=== PATIENT | male | born 1990 | race African-American/Black ===

== ENCOUNTER 2023-09-01 18:53 | Inpatient (IN) | payer SELFPAY ==
[2023-09-01] MEDS ORDERED: Famotidine 20 MG TAB ONE (20:53)
[2023-09-01 20:59] LABS: SARS-CoV-2 E Target Negative; SARS-CoV-2 N2 Target Negative; SARS-CoV-2 NAA Rapid Test Not Detected (NotDetected); SARS-CoV-2 RdRP gene Negative
[2023-09-01 21:16] LABS: #Basophils 0.06 10x3/uL (0.0-0.2); %Basophils 0.6 % (0.0-1.0); %Eosinophils 0.6 % (0.0-10.0); %Lymphocytes 15.7 % (21.0-51.0); %Monocytes 6.4 % (0.0-10.0); %Neutrophils 76.1 % (42.0-75.0); Hematocrit 42.7 % (42.0-52.0); Hemoglobin 13.4 g/dL (14.0-18.0); Mean Corpuscular HGB CONC 31.4 g/dL (32.0-36.0); Mean Corpuscular Hemoglobin 26.7 pg (27.0-31.0); Mean Corpuscular Volume 85.2 fL (78.0-98.0); Mean Platelet Volume 10.6 fL (7.4-10.4); Platelet Count 221 10x3/uL (130-400); RBC Distribution Width 14.3 % (11.5-14.5); Red Blood Cell (RBC) Count 5.01 mill/uL (4.70-6.10)
[2023-09-01 21:31] LABS: ALT (SGPT) 14 U/L (8-55); AST (SGOT) 12 U/L (5-34); Albumin 3.7 g/dL (3.5-5.0); Alkaline Phosphatase 76 U/L (40-110); Anion Gap 15 mmol/L (10-20); BUN (Urea Nitrogen) 14 mg/dL (8.9-20.6); Bilirubin, Total 0.3 mg/dL (0.2-1.2); Calc. Creatinine Clearance 0 mL/min (70-130); Calcium 9.5 mg/dL (7.8-10.44); Carbon Dioxide 23 mmol/L (22-29); Chloride 104 mmol/L (98-107); Estimated GFR 93; Globulin 3.2 g/dL (2.4-3.5); Glucose 139 mg/dL (70-105); Lipase 12 U/L (8-78); Potassium 4.4 mmol/L (3.5-5.1); Protein, Total 6.9 g/dL (6.0-8.3); Sodium 138 mmol/L (136-145)
[2023-09-01 21:36] LABS: Troponin I 0.059 ng/mL (< 0.028)
[2023-09-01] MEDS ORDERED: Aspirin Chewable 81 MG TAB ONE (21:47)
[2023-09-01] MEDS ORDERED: Nitroglycerin 0.4 MG TAB 1 EACH ONE ×2 (21:48→21:57)
[2023-09-01 23:42] VITALS: BMI 47.0
[2023-09-01] MEDS ORDERED: Ondansetron PF 4 MG/2 ML Vial IVP PRN (23:55)
[2023-09-01] MEDS ORDERED: Acetaminophen 650 MG Suppository PR PRN (23:55)
[2023-09-01] MEDS ORDERED: Ondansetron ODT 4 MG TAB PO PRN (23:55)
[2023-09-02] MEDS ORDERED: Dextrose 5% in Water 1,000 ML IV PRN (00:01)
[2023-09-02] MEDS ORDERED: Dextrose 50% Abboject 50 ML SYRINGE SLOW IVP PRN (00:01)
[2023-09-02] MEDS ORDERED: Glucagon 1 MG/ML KIT IM PRN (00:01)
[2023-09-02] MEDS ORDERED: Insulin Regular, Human 100 UNIT/ML 10 ML VIAL SC PRN ×2 (00:01)
[2023-09-02 00:41] LABS: Troponin I 1.038 ng/mL (< 0.028)
[2023-09-02] MEDS: Enoxaparin 30 MG (0.3 mL) SYRINGE SC SCH (01:03)
[2023-09-02] MEDS: Enoxaparin 100 MG (1 mL) SYRINGE SC SCH (01:03)
[2023-09-02] MEDS: Lidocaine 2% Viscous 10 mL, Alum & Magn 30 mL SSW SCH (02:09)
[2023-09-02] MEDS: Heparin 10,000 UNITS/ 10 ML VIAL SLOW IVP SCH (02:19)
[2023-09-02] MEDS: Heparin 25,000 units/D5W 500 ML IVPB SCH (02:21)
[2023-09-02 03:07] LABS: Hematocrit 41.5 % (42.0-52.0); Hemoglobin 13.2 g/dL (14.0-18.0); Platelet Count 234 10x3/uL (130-400)
[2023-09-02 04:39] LABS: #Basophils 0.05 10x3/uL (0.0-0.2); %Basophils 0.4 % (0.0-1.0); %Eosinophils 0.8 % (0.0-10.0); %Neutrophils 69.4 % (42.0-75.0); Hematocrit 40.8 % (42.0-52.0); Hemoglobin 12.9 g/dL (14.0-18.0); Mean Corpuscular HGB CONC 31.6 g/dL (32.0-36.0); Mean Corpuscular Hemoglobin 26.2 pg (27.0-31.0); Mean Corpuscular Volume 82.8 fL (78.0-98.0); Mean Platelet Volume 11.3 fL (7.4-10.4); Platelet Count 237 10x3/uL (130-400); RBC Distribution Width 14.4 % (11.5-14.5); Red Blood Cell (RBC) Count 4.93 mill/uL (4.70-6.10)
[2023-09-02 05:00] LABS: Hemoglobin A1c 10.5 % (4.0-6.0)
[2023-09-02 05:14] LABS: Anion Gap 12 mmol/L (10-20); BUN (Urea Nitrogen) 12 mg/dL (8.9-20.6); Calc. Creatinine Clearance 209 mL/min (70-130); Calcium 8.9 mg/dL (7.8-10.44); Carbon Dioxide 23 mmol/L (22-29); Chloride 103 mmol/L (98-107); Estimated GFR 110; Glucose 140 mg/dL (70-105); Potassium 4.5 mmol/L (3.5-5.1); Sodium 133 mmol/L (136-145)
[2023-09-02] MEDS ORDERED: Enoxaparin 100 MG (1 mL) SYRINGE SC SCH ×2 (09:00)
[2023-09-02] MEDS ORDERED: Enoxaparin 30 MG (0.3 mL) SYRINGE SC SCH (09:00)
[2023-09-02] MEDS: Insulin Lispro 100 UNIT/ML 10 ML VIAL SC SCH (09:44)
[2023-09-02] MEDS: Famotidine 20 MG TAB PO SCH (09:45)
[2023-09-02] MEDS: Famotidine/PF 20 mg/2ml Vial SLOW IVP SCH (09:45)
[2023-09-02 10:40] LABS: Cardiac Risk 7.6 (Less than 4.5)
[2023-09-02] MEDS ORDERED: Communication Order-Pharmacy FS SCH (11:00)
[2023-09-02] MEDS: Aspirin 81 mg Enteric Coated Tablet PO SCH (13:41)
[2023-09-02] MEDS: Nitroglycerin 2% Ointment 1 INCH/1 GM Packet TOP SCH (14:12)
[2023-09-02] MEDS: Insulin Glargine 30 UNITS/0.3 ML VIAL SC SCH (21:09)
[2023-09-02] MEDS: Acetaminophen 325 MG TAB PO PRN (21:12)
[2023-09-02] MEDS: Rosuvastatin 20 MG TAB PO SCH (21:16)
[2023-09-02 22:29] LABS: Amphetamine Not Detected (NotDetected); Barbiturates Screen Not Detected (NotDetected); Benzodiazepine Screen Not Detected (NotDetected); Cocaine Metabolite Screen Not Detected (NotDetected); Methadone Not Detected (NotDetected); Methamphetamine Not Detected (NotDetected); Opiate Screen Not Detected (NotDetected); Oxycodone Screen Not Detected (NotDetected); Phencyclidine (PCP) Not Detected (NotDetected); THC/Cannabinoid Screen Detected (NotDetected); Tricyclic Screen Not Detected (NotDetected)
[2023-09-03] MEDS: Sodium Chloride 0.9% 1,000 ML IV SCH (06:25)
[2023-09-03] MEDS: Aspirin 81 mg Enteric Coated Tablet PO SCH (06:26)
[2023-09-03] MEDS ORDERED: Nitroglycerin 50 MG/250 ML BOT 250 ML ONE (06:29)
[2023-09-03] MEDS ORDERED: Heparin 10,000 UNITS/ 10 ML VIAL ONE (06:29)
[2023-09-03] MEDS ORDERED: Midazolam HCl 2 mg/2 ml Vial ONE ×2 (07:16→08:09)
[2023-09-03] MEDS ORDERED: fentaNYL 50 mcg/mL 1 mL Vial ONE ×6 (07:16→14:19)
[2023-09-03] MEDS ORDERED: TICAGRELOR 90 MG TABLET ONE ×2 (08:46)
[2023-09-03] MEDS ORDERED: Fentanyl 100 MCG/2 ML VIAL SLOW IVP PRN (09:16)
[2023-09-03] MEDS ORDERED: fentaNYL 50 mcg/mL 1 mL Vial SLOW IVP PRN (09:22)
[2023-09-03] MEDS ORDERED: Iopamidol 370 76% 100 ML VIAL ONE (15:05)
[2023-09-03] MEDS: Lisinopril 5 MG TAB PO SCH (20:18)
[2023-09-03] MEDS: TICAGRELOR 90 MG TABLET PO SCH (20:19)
[2023-09-04 03:40] LABS: #Basophils 0.04 10x3/uL (0.0-0.2); %Basophils 0.5 % (0.0-1.0); %Eosinophils 1.3 % (0.0-10.0); %Lymphocytes 23.8 % (21.0-51.0); %Neutrophils 64.7 % (42.0-75.0); Hematocrit 41.8 % (42.0-52.0); Mean Corpuscular HGB CONC 31.1 g/dL (32.0-36.0); Mean Corpuscular Hemoglobin 26.9 pg (27.0-31.0); Mean Corpuscular Volume 86.4 fL (78.0-98.0); Platelet Count 168 10x3/uL (130-400); RBC Distribution Width 14.2 % (11.5-14.5); Red Blood Cell (RBC) Count 4.84 mill/uL (4.70-6.10)
[2023-09-04 03:58] LABS: ALT (SGPT) 18 U/L (8-55); AST (SGOT) 26 U/L (5-34); Albumin 3.4 g/dL (3.5-5.0); Alkaline Phosphatase 67 U/L (40-110); Anion Gap 15 mmol/L (10-20); BUN (Urea Nitrogen) 10 mg/dL (8.9-20.6); Bilirubin, Total 0.6 mg/dL (0.2-1.2); Calc. Creatinine Clearance 187 mL/min (70-130); Calcium 9.3 mg/dL (7.8-10.44); Carbon Dioxide 21 mmol/L (22-29); Chloride 105 mmol/L (98-107); Estimated GFR 96; Globulin 2.9 g/dL (2.4-3.5); Glucose 94 mg/dL (70-105); Potassium 4.3 mmol/L (3.5-5.1); Protein, Total 6.3 g/dL (6.0-8.3); Sodium 137 mmol/L (136-145)
[2023-09-04] MEDS: Carvedilol 6.25 MG TAB PO SCH (08:58)
[2023-09-04] MEDS: Ezetimibe 10 MG TAB PO SCH (08:58)
[2023-09-04 16:22] VITALS: TEMP 97.4
[2023-09-05] MEDS: metFORMIN 500 MG TAB PO SCH (09:26)
[2023-09-05] MEDS: glipiZIDE XL 2.5 mg ER.TAB PO SCH (09:26)
[2023-09-05 17:54] VITALS: BP 108/56
== END 2023-09-05 17:30 | disposition home or self-care (01) | DRG 322 ==
LOC: ERS 18:53 → 2NO 22:15 → OBSVTOIN 09-02 05:11
PROVIDERS: ADMIT Student in an Organized Health Care Education/Training Program; ATTEND Family Medicine
PROC: 4A023N7 Measurement of Cardiac Sampling and Pressure, Left Heart, Percutaneous Approach (ICD-10-PCS; principal; 2023-09-03)
PROC: 027035Z Dilation of Coronary Artery, One Artery with Two Drug-eluting Intraluminal Devices, Percutaneous Approach (ICD-10-PCS; 2023-09-03)
PROC: B2151ZZ Fluoroscopy of Left Heart using Low Osmolar Contrast (ICD-10-PCS; 2023-09-03)
PROC: B2111ZZ Fluoroscopy of Multiple Coronary Arteries using Low Osmolar Contrast (ICD-10-PCS; 2023-09-03)
DX: I21.4 Non-ST elevation (NSTEMI) myocardial infarction (principal); Z68.42 Body mass index [BMI] 45.0-49.9, adult; I50.22 Chronic systolic (congestive) heart failure; E66.01 Morbid (severe) obesity due to excess calories; E78.2 Mixed hyperlipidemia; I11.0 Hypertensive heart disease with heart failure; F12.10 Cannabis abuse, uncomplicated; E11.65 Type 2 diabetes mellitus with hyperglycemia; Z79.4 Long term (current) use of insulin; Z79.01 Long term (current) use of anticoagulants; Z79.899 Other long term (current) drug therapy; Z79.82 Long term (current) use of aspirin; I25.10 Atherosclerotic heart disease of native coronary artery without angina pectoris
CPT/HCPCS: 36415; 36416; 71045; 80048; 80053; 80061; 80306; 83036; 83690; 83880; 84484; 85025; 85347; 85730; 92928; 92929; 93005; 93010; 93306; 93458; 93798; 96372; 97139; 99152; 99153; C1769; C1874; C1887; C1894; C9600; G0378; J1644; J1650; J1815; J2250; J3010; J7050; Q9967; U0002

== ENCOUNTER 2024-03-15 14:34 | Outpatient (CLI) | payer SELFPAY ==
[2024-03-15 16:05] LABS: #Basophils 0.05 10x3/uL (0.0-0.2); %Basophils 0.6 % (0.0-1.0); %Eosinophils 0.9 % (0.0-10.0); %Lymphocytes 33.3 % (21.0-51.0); %Monocytes 5.6 % (0.0-10.0); %Neutrophils 59.4 % (42.0-75.0); Hematocrit 45.8 % (42.0-52.0); Hemoglobin 14.7 g/dL (14.0-18.0); Mean Corpuscular HGB CONC 32.1 g/dL (32.0-36.0); Mean Corpuscular Hemoglobin 25.6 pg (27.0-31.0); Mean Corpuscular Volume 79.8 fL (78.0-98.0); Mean Platelet Volume 11.6 fL (7.4-10.4); Platelet Count 254 10x3/uL (130-400); RBC Distribution Width 14.3 % (11.5-14.5); Red Blood Cell (RBC) Count 5.74 mill/uL (4.70-6.10)
[2024-03-15 16:37] LABS: ALT (SGPT) 15 U/L (Less than 45); AST (SGOT) 17 U/L (11-34); Alkaline Phosphatase 59 U/L (40-110); Anion Gap 12 mmol/L (10-20); BUN (Urea Nitrogen) 12 mg/dL (8.9-20.6); Bilirubin, Total 0.3 mg/dL (0.3-1.2); Calc. Creatinine Clearance 0 mL/min (70-130); Carbon Dioxide 26 mmol/L (22-29); Chloride 104 mmol/L (98-107); Estimated GFR 87; Globulin 3.2 g/dL (2.4-3.5); Glucose 90 mg/dL (70-105); Potassium 4.6 mmol/L (3.5-5.1); Protein, Total 7.2 g/dL (6.0-8.3); Sodium 137 mmol/L (136-145)
== END 2024-03-15 14:35 | disposition home or self-care (01) ==
LOC: LABBT 14:34
PROVIDERS: ATTEND Internal Medicine Cardiovascular Disease
DX: Z01.812 Encounter for preprocedural laboratory examination (principal); I25.10 Atherosclerotic heart disease of native coronary artery without angina pectoris; Z95.5 Presence of coronary angioplasty implant and graft
CPT/HCPCS: 80053; 85025

== ENCOUNTER → 2024-03-17 | Day surgery (SDC) | payer SELFPAY ==
[2024-03-15 14:34] VITALS: BMI 44.4
[~2024-03-17] MED LIST: Adenosine 6 mg (2 mL) VIAL ONE; Atropine Sulfate 1 mg/10 ml Syringe ONE; Heparin 10,000 UNITS/ 10 ML VIAL ONE; Iopamidol 370 76% 100 ML VIAL ONE; Lidocaine 1% MPF 2 ML VIAL ONE; Midazolam HCl 2 mg/2 ml Vial ONE; Nitroglycerin 50 MG/250 ML BOT 250 ML ONE; PHENYLEPHRINE-NS 100 MCG/ML 10 ML SYRINGE ONE; Verapamil 5 MG/2 ML VIAL ONE; fentaNYL 50 mcg/mL 1 mL Vial ONE
== END ==
LOC: SDC 06:02
PROVIDERS: ATTEND Internal Medicine Cardiovascular Disease
PROC: 4A023N6 Measurement of Cardiac Sampling and Pressure, Right Heart, Percutaneous Approach (ICD-10-PCS; principal; 2024-03-17)
DX: I25.10 Atherosclerotic heart disease of native coronary artery without angina pectoris (principal); I50.22 Chronic systolic (congestive) heart failure; I21.4 Non-ST elevation (NSTEMI) myocardial infarction; E11.9 Type 2 diabetes mellitus without complications; E78.2 Mixed hyperlipidemia; F12.90 Cannabis use, unspecified, uncomplicated; Z79.02 Long term (current) use of antithrombotics/antiplatelets; Z79.84 Long term (current) use of oral hypoglycemic drugs; Z79.82 Long term (current) use of aspirin; Z79.899 Other long term (current) drug therapy; F17.210 Nicotine dependence, cigarettes, uncomplicated
CPT/HCPCS: 36415; 76937; 85347; 92928; 93005; 93454; 99152; 99153; C1751; C1769; C1874; C1887; C1894; C9600; J0153; J0461; J1644; J2250; J3010; Q9967